=== PATIENT | female | born 1990 | race Caucasian/White ===

== ENCOUNTER 2022-04-28 08:32 | Outpatient (CLI) | payer BC, SELFPAY ==
--- NOTE | 2022-04-28 08:45 | CRLHL7_ITS ---
For Patients: As a result of the Century Cures Act, medical imaging exams and procedure reports are released immediately into your electronic medical record. You may view this report before your referring provider. If you have questions, please contact your health care provider. INDICATION: First trimester scan, establish dates. COMPARISON: None. TECHNIQUE: Real-time benitez-scale imaging of the pelvis was performed. FINDINGS: There is a small ovoid structure within the endometrial canal which may represent a very early gestational sac. Mean sac diameter 2.4 millimeters, 4 weeks 6 days. No intrauterine or ectopic pole. Corpus luteal cyst right ovary. No pelvic free fluid. Normal left ovary. IMPRESSION: Probable tiny intrauterine gestational sac with a mean sac diameter corresponding to a 4 week 6 day gestation. No pole is present. Dictated by Lexa Gunter MD @ 04/28/2022 10:31:22 AM (Electronically Signed)
--- OUTSIDE RECORDS SUMMARY | 2022-04-28 08:47 | XMS_ITS | Clinical Summary ---
:1990 Author Organization [facility] [place] [address] Care Team Providers Name Role Phone Pcp, No Primary Care Provider Unavailable Allergies Active Allergy Reactions Severity Noted Date Comments Penicillins Hives 08/02/2015 Medications Medication Sig Dispensed Refills Start Date End Date Status fexofenadine (ANDER) Take 180 mg by 0 Active 180 mg tablet mouth. levalbuterol (XOPENEX Inhale 2 Puffs by 0 04/11/2020 Active HFA) 45 mcg/actuation mouth. inhaler fish oil-omega-3 fatty Take 2 g by 0 Active acids 300-1,000 mg mouth. omeprazole (PRILOSEC) Take 10 mg by 0 04/11/2020 Active 10 mg capsule mouth. sodium chloride 0.65 % Inhale 1-2 Drops 30 mL 0 08/13/2020 Active dropIndications: Bloody in the nostril(s) nose, Uses continuous at bedtime if positive airway needed. pressure (CPAP) ventilation at home Active Problems Not on file Social History Tobacco Use Types Packs/Day Years Used Date Current Some Day Smoker Smokeless Tobacco: Never Used Alcohol Use Standard Drinks/Week Comments Yes 0 (1 standard drink = 0.6 oz pure alcoho l) Sex Assigned at Date Recorded Not on file Obstetrics History Last Filed Vital Signs Vital Sign Reading Time Taken Comments Blood Pressure 130/94 08/13/2020 1:44 PM RESEARCH NURSE PRACTITIONER Pulse 93 08/13/2020 1:44 PM RESEARCH NURSE PRACTITIONER Temperature 36.5 ??C (97.7 ??F) 08/13/2020 1:44 PM RESEARCH NURSE PRACTITIONER Respiratory Rate 20 08/13/2020 1:44 PM RESEARCH NURSE PRACTITIONER Oxygen Saturation 99% 08/13/2020 1:44 PM RESEARCH NURSE PRACTITIONER Inhaled Oxygen Concentration - - Weight 115.2 kg (253 lb 14.4 oz) 08/13/2020 1:44 PM RESEARCH NURSE PRACTITIONER Height - - Body Mass Index - - Plan of Treatment Health Maintenance Due Date Last Done Comments COVID-19 vaccine series (#1) 05/07/1990 Tdap 2000 Depression screening for age 12+ 2001 BMI (ht and wt on same day) for age 18+ 11/05/2007 Hepatitis C screening for age 18-79 11/05/2007 Tetanus booster 2009 Pap test for age 21-65 2010 Influenza for age 9-49 02/12/2022 Results Not on filefrom Last 3 Months Insurance Payer Benefit Plan / Subscriber ID Effective Dates Phone Addre ss Type Group [employer] [id number] 2020-Presen [address] [place] [address] Care Teams Negative Spotter Relationship Specialty Start Date End Date Pcp, No PCP - General 08/13/20 .
== END 2022-04-28 08:33 | disposition home or self-care (01) ==
LOC: US 08:33
PROVIDERS: Visit Provider Advanced Practice Midwife
DX: Z34.91 Encounter for supervision of normal pregnancy, unspecified, first trimester (principal); Z3A.09 9 weeks gestation of pregnancy
CPT/HCPCS: 76817; 84443; 86592; 86703; 86762; 86787; 86803; 86850; 86900; 86901; 87086; 87340

== ENCOUNTER 2022-05-22 07:18 | Outpatient (CLI) | payer BC, SELFPAY ==
--- NOTE | 2022-05-22 07:15 | CRLHL7_ITS ---
For Patients: As a result of the Cures Act, medical imaging exams and procedure reports are released immediately into your electronic medical record. You may view this report before your referring provider. If you have questions, please contact your health care provider. INDICATION: Prior ultrasound demonstrates only a gestational sac TECHNIQUE: Ultrasound OB pelvis transvaginal. Real time benitez scale imaging of the pelvis was performed. COMPARISON: FINDINGS: Sonographic imaging demonstrates a single living intrauterine gestation. The embryo demonstrates a regular cardiac rate measuring 168 beats per minute. The embryo`s crown rump length measurement of 1.9 cm corresponds to a gestational age of 8 weeks 3 days with a sonographic due date of 12/29/2022. There is a normal appearing yolk sac. There are no gross abnormalities noted within the embryo at this early state of development. The placenta has not yet developed. The gestational sac has a normal appearance and there is no evidence of a perigestational hemorrhage. The amount of fluid within the sac appears appropriate for gestational age. The cervix is closed. The myometrium appears normal. Only right ovaries visualized. There are no suspicious fluid collections noted in the cul-de-sac. IMPRESSION: Viable intrauterine . Gestational age calculated at 8 weeks 3 days with a sonographic due date of 12/29/2022 . No abnormalities seen. Dictated by Lexa Patton MD @ 05/22/2022 8:52:43 AM (Electronically Signed)
--- OUTSIDE RECORDS SUMMARY | 2022-05-22 07:21 | XMS_ITS | Clinical Summary ---
:1990 Author Organization [facility] [place] [address] Care Team Providers Name Role Phone Pcp, [...] Comments Blood Pressure 130/94 08/13/2020 1:44 PM INTERIOR BLOCK WIRER Pulse 93 08/13/2020 1:44 PM INTERIOR BLOCK WIRER Temperature 36.5 ??C (97.7 ??F) 08/13/2020 1:44 PM INTERIOR BLOCK WIRER Respiratory Rate 20 08/13/2020 1:44 PM INTERIOR BLOCK WIRER Oxygen Saturation 99% 08/13/2020 1:44 PM INTERIOR BLOCK WIRER Inhaled Oxygen Concentration - - Weight 115.2 kg (253 lb 14.4 oz) 08/13/2020 1:44 PM INTERIOR BLOCK WIRER Height - - Body Mass Index - - Plan of Treatment Health Maintenance Due Date Last Done Comments COVID-19 vaccine series (#1) 05/07/1990 Tdap 2000 Depression screening for age 12+ 2001 HIV for age 15-65 2004 BMI (ht and wt on same day) for age 18+ 11/05/2007 Hepatitis C screening for age 18-79 11/05/2007 Tetanus booster 2009 Pap test for age 21-65 2010 Influenza for age 9-49 02/12/2022 Results Not on filefrom Last 3 Months Insurance Payer Benefit Plan / Subscriber ID Effective Dates Phone Addre ss Type Group [employer] [id number] 2020-Presen [address] [place] [address] Care Teams Marshmallow Runner Relationship Specialty Start Date End Date Pcp, No PCP - General 08/13/20 .
== END 2022-05-22 07:19 | disposition home or self-care (01) ==
LOC: US 07:19
PROVIDERS: Visit Provider Advanced Practice Midwife
DX: Z34.91 Encounter for supervision of normal pregnancy, unspecified, first trimester (principal)
CPT/HCPCS: 76817

== ENCOUNTER 2022-08-01 18:30 | Emergency (ER) | payer BC, SELFPAY ==
[2022-08-01 18:39] VITALS: BP 144/73; PULSE 86; RESP 18; TEMP 36; O2SAT 99; BMI 40.7
--- NOTE | 2022-08-01 18:46 | CRLHL7_ITS ---
For Patients: As a result of the Century Cures Act, medical imaging exams and procedure reports are released immediately into your electronic medical record. You may view this report before your referring provider. If you have questions, please contact your health care provider. INDICATION: Fall, minor abdominal pain, 8 weeks 6 days . TECHNIQUE: Transabdominal limited OB ultrasound. FINDINGS: Viable IUP with heart rate of 144 beats per minute. Breech presentation. Cervix was not visualized. Placenta is posterior. No specific evidence for abruption. Normal amniotic fluid with the single deepest pocket measuring 4.1 cm. IMPRESSION: Live IUP. No complications identified. Dictated by Vincent Hernández MD @ 08/01/2022 8:08:41 PM (Electronically Signed)
--- NOTE | 2022-08-01 19:41 | ED_ITS ---
HPI - General Adult General Chief complaint: Fall/Minor Trauma Stated complaint: 18w /Fall Time Seen by Provider: 08/01/22 18:34 Source: patient Mode of arrival: ambulatory Limitations: no limitations History of Present Illness HPI narrative: 31-year-old female, approximately 18 weeks coming in today concerned after falling. She slipped on the ice and fell on her left side. She fell on her hip in her left knee. Patient is quite concerned about the well-being of her fetus. She denies any vaginal bleeding or abdominal cramping. States that her knee and hip are little sore but she is walking around without any difficulty. Would Like to have the baby checked today, has no other concerns. Related Data Home Medications Medication Instructions Recorded Confirmed cetirizine 10 mg capsule (Zyrtec) 10 mg PO QDAY PRN 01/14/22 08/01/22 omeprazole 10 mg capsule,delayed 10 mg PO ONCE 01/14/22 08/01/22 release prenat.vits,manish,[id number] 1 tab PO QDAY 01/14/22 08/01/22 Allergies Allergy/AdvReac Type Severity Reaction Status Date / Time Penicillins Allergy Severe Hives Verified 07/17/22 08:56 gluten intolerance AdvReac Mild Gastrointestinal Uncoded 07/17/22 08:56 Upset Review of Systems Status of ROS: Reports: 10 or more systems reviewed and unremarkable except as noted in History and below [facility] Medical History Abnormal Pap smear of cervix Asthma ARLET I (cervical intraepithelial neoplasia I) Fracture of radial neck, left, closed High risk HPV infection Surgical History History of cholecystectomy Family History Father Asthma Depression Maternal Grandfather Cancer Mother Ovarian cancer Cancer of vagina Sister Depression Anxiety Social History (Updated 04/28/22 @ 16:37 by Naty Lange CNM) Narrative: SOCIAL Education: Graduate in October Associate Work: Accounting at [email or web address] 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 Lives with: Lives with partner Pets: 2 cats, 2 dogs Abuse: Denies past/present Special Diet: Avoids gluten Ok with a blood transfusion: yes Culture or mandaen beliefs: denies RISK FACTORS Exercise Times/wk: not routinely; dogs on walks occasionally Depression/Anxiety: hx of both; Seen therapist and on medication in the past for it (Fluoxetine, stopped about 1 year ago); Feels she has ADHD SHAI: 4 PHQ 9: 9 Seat Belt Use: Routinely Smoking: Denies present; Stopped about 5 years ago; does socially smoke in last 3 years; Not currently smoking since started Alcohol/day: Denies while ; Socially prior Caffeine: 2-3 cups of coffee per day Drug Use: Denies past/present Chicken Pox: Yes as a child MRSA: Denies Smoking Status: Former smoker Do you use any of these nicotine containing products: None Second hand tobacco smoke exposure: No How often do you have a drink containing alcohol: never AUDIT-C Alcohol total score: 0 Non-prescribed substance use: denies use Little interest or pleasure in doing things: several days Feeling down, depressed, or hopeless: not at all Exam Narrative: Exam Narrative: Well-nourished well-developed patient in no acute distress. Alert and oriented. Answers questions appropriately. Mood and affect are appropriate. Thoughts are goal oriented and rational. No tangential or magical thinking noted. Patient speaks in full sentences without needing to catch her breath. Voice is not slurred or pressured. HEENT: Normocephalic atraumatic. Pupils are equally round reactive to light. Extraocular muscles are intact. Conjunctivae are moist without any icterus not ed. Moist mucous membranes. Cardiovascular: Heart is regular rate and rhythm Abdomen: Soft and nontender nondistended with normal bowel sounds. No guarding or rebound. Const: Vital Signs, click to edit/add: Vital Signs - 24 hr 08/01/22 18:39 Temperature 96.8 F L Pulse Rate [Pulse Oximeter] 86 Respiratory Rate 18 Blood Pressure [Ri ght Upper Arm] 144/73 H Pulse Oximetry 99 Oxygen Delivery Me thod Room Air Course Course Hospital Course: heart tones were checked at 1:45 a.m.. Limited OB ultrasound was performed-per business office technology instructor, examination was entirely normal with a normal appearing fetus. No evidence of bleeding noted. Final radiological reading pending at this time. Vital Signs Vital signs: Initial Vital Signs Temperature 96.8 F L 08/01/22 18:39 Temperature Source Temporal Artery Scan 08/01/22 18:39 Pulse Rate 86 08/01/22 18:39 Respiratory Rate 18 08/01/22 18:39 Blood Pressure 144/73 H 08/01/22 18:39 Blood Pressure Mean 96 08/01/22 18:39 Blood Pressure Position Sitting 08/01/22 18:39 Pulse Oximetry 99 08/01/22 18:39 Oxygen Delivery Method 08/01/22 18:39 Vital Signs Temperature 96.8 F L 08/01/22 18:39 Pulse Rate 86 08/01/22 18:39 Respiratory Rate 18 08/01/22 18:39 Blood Pressure 144/73 H 08/01/22 18:39 Pulse Oximetry 99 08/01/22 18:39 Oxygen Delivery Method 08/01/22 18:39 Temperature 96.8 F L 08/01/22 18:39 Pulse Rate 86 08/01/22 18:39 Respiratory Rate 18 08/01/22 18:39 Blood Pressure 144/73 H 08/01/22 18:39 Pulse Oximetry 99 08/01/22 18:39 Oxygen Delivery Method 08/01/22 18:39 Medical Decision Making MDM Narrative Medical decision making narrative: 31-year-old female status post a fall, OB ultrasound within normal l imits. Patient reassured. Discharge Plan Discharge Clinical Impression: Fall Patient Disposition: Home, Self-Care Condition: Stable Prescriptions: No Action omeprazole 10 mg capsule,delayed release(DR/EC) 10 mg PO ONCE Zyrtec 10 mg capsule 10 mg PO QDAY PRN prenat.vits,manish,[id number] Tablet 1 tab PO QDAY Follow Up/Referrals: Provider,Not a Local [Primary Care Provider] - Stand Alone Forms: MyHealth Info Instructions
== END 2022-08-01 19:53 | disposition home or self-care (01) ==
PROVIDERS: Emergency Provider Family Medicine
DX: O99.893 Other specified diseases and conditions complicating puerperium (principal); W00.0XXA Fall on same level due to ice and snow, initial encounter
CPT/HCPCS: 76815; 99283; 99284

== ENCOUNTER 2022-08-13 07:09 | Outpatient (CLI) | payer BC, SELFPAY ==
--- NOTE | 2022-08-13 07:15 | CRLHL7_ITS ---
For Patients: As a result of the Century Cures Act, medical imaging exams and procedure reports are released immediately into your electronic medical record. You may view this report before your referring provider. If you have questions, please contact your health care provider. INDICATION: Evaluate anatomy. COMPARISON: August 01, 2022. TECHNIQUE: Real time benitez scale imaging of the fetus was performed. FINDINGS: Sonographic imaging demonstrates a single living intrauterine gestation. Fetus demonstrates a regular cardiac rate of 138 beats per minute. Fetus has a breech orientation and longitudinal lie. The placenta lies posteriorly without evidence of placenta previa. Amniotic fluid volume appears normal. Single deepest vertical pocket: 4.1 cm. The cervix is closed and measures 3.1 cm in length. The composite ultrasound gestational age is calculated at 20 weeks 6 days with an estimated sonographic due date of December 25, 2022. The estimated weight is 402 grams which lies at the 77th percentile. Appropriate growth and maturation compared to the most recent study August 01, 2022. The following biometric measurements were obtained: Biparietal diameter: 4.8 cm/20 weeks 4 days 49% Head circumference: 17.9 cm/20 weeks 2 days 31% Abdominal circumference: 17.0 cm/21 week 6 days 84% Femur length: 3.4 cm/20 weeks 3 days 38% The HC/AC ratio measures: 1.06 range (1.06-1.25) The FL/AC ratio measures 19.79. On anatomic survey, there is a normal appearance of the cerebral ventricles, cisterna magna and cerebellum. The nose, lips, and facial profile appear grossly unremarkable but not optimally visualized particularly laterally. The cervical, thoracic and lumbar spine are well visualized and appear normal. There is a normal four-chamber heart view. The left and right ventricular outflow tracts are not well seen due to presentation. diaphragm, stomach, kidneys and bladder appear normal. There is a normal three-vessel cord and cord insertion site. The four extremities appear normal with the exception of the feet which are not optimally or clearly seen. IMPRESSION: Normal OB ultrasound exam with concordance of clinical and sonographic dating. No intrinsic abnormalities noted on anatomic survey. Please note however, the facial profile, right and left ventricular outflow tracts, and the feet are not well seen and therefore a short interval follow-up ultrasound is recommended for these structures. Dictated by Jewel Fierro MD @ 08/13/2022 8:40:18 AM (Electronically Signed)
== END 2022-08-13 07:10 | disposition home or self-care (01) ==
LOC: US 07:10
PROVIDERS: Visit Provider Advanced Practice Midwife
DX: Z34.82 Encounter for supervision of other normal pregnancy, second trimester (principal); Z3A.20 20 weeks gestation of pregnancy
CPT/HCPCS: 76805

== ENCOUNTER 2022-08-28 07:08 | Outpatient (CLI) | payer BC, SELFPAY ==
--- NOTE | 2022-08-28 07:15 | CRLHL7_ITS ---
For Patients: As a result of the Century Cures Act, medical imaging exams and procedure reports are released immediately into your electronic medical record. You may view this report before your referring provider. If you have questions, please contact your health care provider. INDICATION: Follow-up missing anatomy COMPARISON: 08/13/2022 TECHNIQUE: Real time benitez scale imaging of the fetus was performed. FINDINGS: Sonographic imaging demonstrates a single living intrauterine gestation. Fetus demonstrates a regular cardiac rate of 141 beats per minute. Fetus has a vertex position. The placenta lies posteriorly. Amniotic fluid volume appears normal. Single deepest vertical pocket: 5.0 cm. The nose, lips, and facial profile appear normal. The left and right ventricular outflow tracts appear normal. The feet are also normal. IMPRESSION: Normal facial structures, outflow tracts and feet. Dictated by Lexa Gunter MD @ 08/28/2022 11:28:38 AM (Electronically Signed)
== END 2022-08-28 07:09 | disposition home or self-care (01) ==
PROVIDERS: Visit Provider Advanced Practice Midwife
DX: O35.9XX0 Maternal care for (suspected) fetal abnormality and damage, unspecified, not applicable or unspecified (principal); Z36.89 Encounter for other specified antenatal screening
CPT/HCPCS: 76816

== ENCOUNTER 2022-10-12 08:05 | Outpatient (CLI) | payer BC, SELFPAY | END 2022-10-12 08:06 | disposition home or self-care (01) | LOC: NFLDREF 10-14 08:28 | PROVIDERS: PCP Advanced Practice Midwife; Referring Provider Advanced Practice Midwife; Visit Provider Advanced Practice Midwife | DX: Z34.03 Encounter for supervision of normal first pregnancy, third trimester (principal); Z3A.29 29 weeks gestation of pregnancy | CPT/HCPCS: 86592 ==

== ENCOUNTER 2022-10-16 08:46 | Outpatient (CLI) | payer BC, SELFPAY | END 2022-10-16 08:47 | disposition home or self-care (01) | LOC: NFLDREF 10-19 12:28 | PROVIDERS: PCP Advanced Practice Midwife; Referring Provider Advanced Practice Midwife; Visit Provider Advanced Practice Midwife | DX: Z34.93 Encounter for supervision of normal pregnancy, unspecified, third trimester (principal); Z3A.31 31 weeks gestation of pregnancy | CPT/HCPCS: 82951; 82952 ==

== ENCOUNTER 2022-11-18 09:40 | Outpatient (CLI) | payer BC, SELFPAY | END 2022-11-18 09:41 | disposition home or self-care (01) | LOC: AMB 11-19 01:34 | PROVIDERS: Visit Provider Family Medicine | DX: O14.90 Unspecified pre-eclampsia, unspecified trimester (principal) | CPT/HCPCS: A0425; A0427; A0428 ==

== ENCOUNTER 2023-01-11 08:25 | Outpatient (CLI) | payer BC, SELFPAY | END 2023-01-11 08:26 | disposition home or self-care (01) | LOC: NFLDREF 09:57 | PROVIDERS: Visit Provider Advanced Practice Midwife | DX: O24.419 Gestational diabetes mellitus in pregnancy, unspecified control (principal) | CPT/HCPCS: 82947; 82950 ==

== ENCOUNTER 2023-12-20 07:15 | Outpatient (CLI) | payer OTHER, SELFPAY ==
--- NOTE | 2023-12-20 07:15 | CRLHL7_ITS ---
For Patients: As a result of the Cures Act, medical imaging exams and procedure reports are released immediately into your electronic medical record. You may view this report before your referring provider. If you have questions, please contact your health care provider. HISTORY: Dating and viability COMPARISON: None available of this gestation. TECHNIQUE: Transvaginal ultrasound examination of the early was performed. FINDINGS: A single intrauterine gestational sac is seen with a pole. The crown-rump length measurement of 1.1 cm gives an estimated gestational age of 7 weeks 2 days with an estimated date of delivery of 08/05/2024. When compared with the LMP of 10/18/2023 which gives a clinical age of 9 weeks 0 days, the ultrasound dates are 2 weeks behind the clinical dates. Regular cardiac activity is seen at 135 BPM. There is no sign of free fluid in the pelvis. The ovaries are not identified. IMPRESSION: Single intrauterine gestation with estimated age of 7 weeks 2 days, 2 weeks behind the clinical age of 9 weeks 0 days. Regular cardiac activity is seen. Dictated by Abelino Jenkins MD @ 12/20/2023 8:56:23 AM (Electronically Signed)
--- OUTSIDE RECORDS SUMMARY | 2023-12-20 07:19 | XMS_ITS | Clinical Summary ---
Author Organization [place] Address [address] [place] [address] Care Team Providers Care Loom Inspector Name Role Phone Miri Vidales PA-C Unavailable [phone] Callie Odell DO Primary Care Provider [phone] Allergies Active Allergy Reactions Criticality Noted Date Comments Penicillins Hives High 08/02/2015 Medications Medication Sig Dispensed Refills Start Date End Date Status fluticasone-vilante rol (BREO ELLIPTA) 200-25 MCG/ACT inhaler Inhale 1 puff into the lungs every evening Active Vit-Fe Fumarate-FA ( MULTIVITAMIN W/IRON) 27-0.8 MG tablet Take 1 tablet by mouth every evening Active omeprazole (PRILOSEC) [address] capsule Take 10 mg by mouth every evening Active cetirizine (ZYRTEC) 10 MG tablet Take 10 mg by mouth every evening Active calcium carbonate (TUMS) 500 MG chewable tablet Take 1 chew tab by mouth as needed for heartburn Active acetaminophen (TYLENOL) 325 MG tabletIndications:S /P section Take 2 tablets (650 mg) by mouth every 4 hours as needed for mild pain 60 tablet 11/25/2022 Active ibuprofen (ADVIL/MOTRIN) 600 MG tabletIndications:S /P section Take 1 tablet (600 mg) by mouth every 6 hours as needed for moderate pain 20 tablet 11/25/2022 Active senna-docusate (SENOKOT-S/PERICOLA CE) 8.6-50 MG tabletIndications:S /P section Take 1 tablet by mouth 2 times daily as needed for constipation 60 tablet 11/25/2022 Active hydrochlorothiazide (HYDRODIURIL) 12.5 MG tabletIndications:S /P section Take 1 tablet (12.5 mg) by mouth daily 4 tablet 11/25/2022 Active ferrous sulfate (FEROSUL) 325 (65 Fe) MG tabletIndications:S /P section Take 1 tablet (325 mg) by mouth daily (with breakfast) 60 tablet 11/25/2022 Active NIFEdipine ER OSMOTIC (ADALAT CC) 60 MG 24 hr tabletIndications:E levated blood pressure affecting in third trimester, antepartum Take 2 tablets (120 mg) by mouth every 24 hours 60 tablet 11/25/2022 Active Active Problems Problem Noted Date Diagnosed Date Elevated blood pressure affe cting in third trimester, antepartum 11/18/2022 Hard to intubate 11/18/2022 Social History Tobacco Use Types Packs/Day Years Used Date Smoking Tobacco: Former Cigarettes Smokeless Tobacco: Never Tobacco Cessation:Counseling Given: Not Answered Alcohol Use Standard Drinks/Week Comments Not Currently 0 (1 standard drink = 0.6 oz pur e alcohol) [place] Depression Scale Answer Date Recorded Last EPDS Total Score Not on file 11/22/2022 The thought of harming myself has occurred to me . Never 11/22/2022 Adolescent Education Answer Date Record ed Getting School Help Needed Not on file 03/06 Sex and Gender Information Value Date Recorded Sex Assigned at Not on file Gender Identity Not on file Sexual Orientation Not on file Last Filed Vital Signs Vital Sign Reading Time Taken Comments Blood Pressure 134/84 11/26/2022 9:25 AM CDT Pulse 76 11/26/2022 6:05 AM CDT Temperature 36.7 ??C (98 ??F) 11/26/2022 9:25 AM CDT Respiratory Rate 16 11/26/2022 9:25 AM CDT Oxygen Saturation 95% 11/26/2022 9:25 AM CDT Inhaled Oxygen Concentration - - Weight 125.1 kg (275 lb 12.8 oz) 11/26/2022 7:00 AM CDT Height 175.3 cm (5' 9) 11/19/2022 5:48 AM CDT Body Mass Index 40.73 11/19/2022 5:48 AM CDT Plan of Treatment Health Maintenance Due Date Last Done Comments ADVANCE CARE PLANNING 1989 ANNUAL REVIEW OF HM ORDERS 1989 YEARLY PREVENTIVE VISIT 1989 HEPATITIS B IMMUNIZATION (1 of 3 - 19+ 3-dose series) 2008 PAP 2010 DTAP/TDAP/TD IMMUNIZATION (2 - Td or Tdap) 09/14/2021 09/15/2011 COVID-19 Vaccine (1 - 2022-2 4 season) 2023 PHQ-2 (once per calendar year) 2023 INFLUENZA VACCINE (Season Ended) 2024 MENINGITIS IMMUNIZATION Completed 01/10/2008 HEPATITIS C SCREENING Completed 04/28/2022 HIV SCREENING Completed 04/28/2022 HPV IMMUNIZATION Aged Out No longer e ligible based on patient's age to complete this topic IPV IMMUNIZATION Aged Out No longer e ligible based on patient's age to complete this topic Pneumococcal Vaccine: Pediat rics (0 to 5 Years) and At-Risk Patients (6 to 64 Years) Aged Out No longer eligi ble based on patient's age to complete this topic RSV MONOCLONAL ANTIBODY Aged Out No l onger eligible based on patient's age to complete this topic Procedures Procedure Name Priority Date/Time Associated Diagnosis Comments ABSTRACT HIV Routine 04/28/2022 10:53 AM HOTEL DIRECTOR HEPATITIS C ([facility] EXTERNAL RESULT) Routine 04/28/2022 10:53 AM HOTEL DIRECTOR from Last 3 Months or Most Recently Relevant to Health Maintenance Results * ABSTRACT HIV (04/28/2022 10:53 AM HOTEL DIRECTOR) HIV 1&2 EXT Non-Reacti ve [facility] Comment:Negative Blood 04/28/2022 10:5 3 AM HOTEL DIRECTOR Narrative [facility] - 04/28/2022 10:53 AM HOTEL DIRECTOR [facility] RESULT Provider Outside LAB - HIM EXTERNAL R ESULT [facility] [address] [place] [address], [facility] [phone] * Hepatitis C ([facility] External Result) (04/28/2022 10:53 AM HOTEL DIRECTOR) Hep C HIM See Scanned Document [facility] 04/28/2022 10:5 3 AM HOTEL DIRECTOR Narrative [facility] - 04/28/2022 10:53 AM HOTEL DIRECTOR [facility] RESULT Provider Outside LAB - HIM EXTERNAL R ESULT [facility] [address] [place] [address], [facility] [phone] from Last 3 Months or Most Recently Relevant to Health Maintenance Advance Directives For more information, please contact: [phone] * Full Code (Latest Code Status on File) Date Activated Date Inactivated Comments 11/21/2022 3:43 PM 11/26/2022 5:23 PM All basic an d advanced life-sustaining interventions are performed as appropriate Question Answer Comments Code status determined by: Discussion with patie nt/ legal decision maker * Full Code Date Activated Date Inactivated Comments 11/18/2022 11:40 PM 11/21/2022 3:43 PM All basic an d advanced life-sustaining interventions are performed as appropriate Question Answer Comments Code status determined by: Discussion with patie nt/ legal decision maker * Full Code Date Activated Date Inactivated Comments 11/18/2022 12:25 PM 11/18/2022 11:40 PM All basic an d advanced life-sustaining interventions are performed as appropriate Question Answer Comments Code status determined by: Discussion with patie nt/ legal decision maker Care Teams Loom Inspector Relationship Specialty Start Date End Date Callie [place] [address] PCP - General Family Practice 11/18/22 Miri Vidales PA-C [address] [place] [address] [address] [place] [address] Physician Labels Molder Endocrinology, Diabetes, and Metabolism 11/11/22
--- OUTSIDE RECORDS SUMMARY | 2023-12-20 07:19 | XMS_ITS | Referral Summary ---
Author Organization [place] Address [address] [place] [address] Care Team Providers Care Orderly Name Role Phone Miri Vidales PA-C Unavailable Callie Odell DO Primary Care Provider [phone] Allergies Active Allergy Reactions Criticality Noted Date [...] drink = 0.6 oz pur e alcohol) Chloe Depression Scale Answer Date Recorded Last EPDS [...] 11/19/2022 5:48 AM CDT Plan of Treatment Not on file Procedures Procedure Name Priority Date/Time Associated Diagnosis Comments ABSTRACT HIV Routine 04/28/2022 10:53 AM FOUNDATION DIRECTOR HEPATITIS C ([facility] EXTERNAL RESULT) Routine 04/28/2022 10:53 AM FOUNDATION DIRECTOR from Last 3 Months or Most Recently Relevant to Health Maintenance Results * ABSTRACT HIV (04/28/2022 10:53 AM FOUNDATION DIRECTOR) HIV 1&2 EXT Non-Reacti ve [facility] Comment:Negative Blood 04/28/2022 10:5 3 AM [facility] - 04/28/2022 10:53 AM [facility] LAB RESULT Provider Outside LAB - HIM EXTERNAL R ESULT Performing Organization Address City/[facility]/ZIP Co de Phone Number [facility] [address] [place] [address], [facility] [phone] * Hepatitis C ([facility]IM External Result) (04/28/2022 10:53 AM FOUNDATION DIRECTOR) Hep C HIM See Scanned Document [facility] 04/28/2022 10:5 3 AM [facility] - 04/28/2022 10:53 AM [facility] LAB RESULT Provider Outside LAB - HIM EXTERNAL R ESULT Performing Organization Address City/[facility]/ZIP Co de Phone Number [facility] [address] [place] [address], [facility] [phone] from Last 3 Months or Most Recently Relevant to Health Maintenance Advance Directives For more information, please contact: [phone] * Full Code (Latest Code Status on [...] patie nt/ legal decision maker Care Teams Orderly Relationship Specialty Start Date End Date Callie Odell DO [address] [place] [address] PCP - General Family Practice 11/18/22 Miri Vidales PA-C [address] [place] [address] [address] [place] [address] Physician Tinning Equipment Tender Endocrinology, Diabetes, and Metabolism 11/11/22
--- OUTSIDE RECORDS SUMMARY | 2023-12-20 07:20 | XMS_ITS | Encounter Summary ---
Author Organization [place] Address [address] [place] [address]. [place] [address] Care Team Providers Care Medical Imaging Technologist Name Role Phone [facility] Primary Care Provider Miri Vidales PA-C Unavailable [phone] Callie Odell DO Primary Care Provider Encounter Details Date Type Department Care Team (Late st Contact Info) Description 11/17/2022 [facility] [address] [place] [address] Iona Munoz, RN Social History Tobacco Use Types Packs/Day Years Used Date Smoking Tobacco: Never Assessed Comments Yes Sex and Gender Information Value Date Recorded Sex Assigned at Not on file Gender Identity Not on file Sexual Orientation Not on file COVID-19 Exposure Response Date Recorded In the last 10 days, have yo u been in contact with someone who was confirmed or suspected to have Coronavirus/COVID-19? No / Unsure 11/18/2022 10:48 AM CDT documented as of this encounter Plan of Treatment Not on file documented as of this encounter Visit Diagnoses Not on filedocumented in this encounter Care Teams Medical Imaging Technologist Relationship Specialty Start Date End Date [facility] [address] [place] [address] PCP - General 11/11/22 11/17/22 Callie Odell DO [address] [place] [address] PCP - General Family Practice 11/18/22 Miri Vidales PA-C [address] [place] [phone] Physician Voltage Regulator Assembler Endocrinology, Diabetes, and Metabolism 11/11/22 documented as of this encounter
--- OUTSIDE RECORDS SUMMARY | 2023-12-20 07:20 | XMS_ITS | Encounter Summary ---
Author Organization [place] Address [address] [place] [address]. [place] [address] Care Team Providers Care Front End Assistant Name Role Phone Sangeetha Ashby Perkins Primary Care Provider Miri Vidales PA-C Unavailable Callie Odell DO Primary Care Provider [phone] Reason for Visit * Reason Onset Date Comments Call Back 11/17/2022 Encounter Details Date Type Department Care Team (Late st Contact Info) Description 11/17/2022 [facility] End[facility]ology [facility] [place] [address] [facility] [address] [place] [address] Bridget Dixon MD [address] [facility] [address] [place] [address] Call Back Social History Tobacco Use Types Packs/Day Years [...] AM CDT documented as of this encounter Miscellaneous Notes * Telephone Encounter - Joyce Donaldson - 11/17/2022 3:42 PM CDT [facility] Call Center Phone Message May a detailed message be left on voicemail: yes Reason for Call: Other: referring provider wants to make sure the appts scheduled appropriately to the patient's needs, they have conerns over a virtual visit, please call [facility] and ask for triage at [phone] Action Taken: Other: endo Travel Screening: Not Applicable documented in this encounter Plan of Treatment Not on file documented as of this encounter Visit Diagnoses Not on filedocumented in this encounter Care Teams Front End Assistant Relationship Specialty Start Date End Date [facility] [address] [place] [address] PCP - General 11/11/22 11/17/22 Callie Odell DO [address] [place] [address] PCP - General Family Practice 11/18/22 Miri Vidales PA-C [address] [place] [address] [address] [place] [address] Physician Grave Cleaner Endocrinology, Diabetes, and Metabolism 11/11/22 documented as of this encounter
--- OUTSIDE RECORDS SUMMARY | 2023-12-20 07:20 | XMS_ITS | Clinical Summary ---
Author Organization [facility] Address [place], [place] [address] Care Team Providers Care Aquatics Group Fitness Instructor Name Role Phone Callie Odell DO Primary Care Provider Allergies Active Allergy Reactions Criticality Noted Date Comments Penicillins Hives 08/02/2015 Medications Medication Sig Dispensed Refills Start Date End Date Status levalbuterol (XOPENEX HFA) 45 mcg/actuation inhaler Inhale 2 Puffs by mouth. 04/11/2020 Active cetirizine (ZYRTEC) 10 mg tablet Take 1 Tablet (10 mg) by mouth once daily. 0 2022 Active fluticasone furoate-vilanteroL (Breo Ellipta) 200mcg/25mcg inhalerIndications:Mil d persistent asthma without complication Inhale 1 Puff by mouth once daily. 60 Each 2022 Active CPAPIndications:Obstru ctive sleep apnea CPAP machine for home use at pressure 5-15 cmw, nasal mask x1/3month with nasal pillows x 2/mo 1 Each 11 01/07/2023 Active Active Problems Problem Noted Date Diagnosed Date PCOS (polycystic ovarian syndrome) 04/21/2023 Chronic GERD 2022 Obstructive sleep apnea 2022 Mild persistent asthma without complication 10/13 Diet controlled gestational diabetes mellitus (GDM) in third trimester 2022 Encounters Date Type Department Care Team Description 10/20/2023 1:45 PM CDT Office Visit [facility] [address] [place], [place] [id number] Wili Mathew DO Ear Problem (Left ear pain x week /Sinus pressure and teeth pain ) 10/20/2023 Travel 10/16/2023 9:15 AM CDT Office Visit [facility] [address] [place] [address] Placido Tyler MD Ear Problem (Left sided ear pain w/o drainage onset yesterday following single episode of popping sensation to ear s/p blowing nose. ); Sinus Infection (Possible sinus infection; left sided facial/sinus pressure x 2 days. ) 10/16/2023 Travel from Last 3 Months Immunizations Name Administration Dates Next Due Meningococcal Vaccine (Menactra) 01/10/2008 Tdap 09/15/2011 Family History Medical History Relation Name Comments Good Health Brother 1 Good Health Brother 2 Asthma Father Hypertension Father Other Father Cough-related s yncope Unknown Maternal Grandfather Diabetes Maternal Grandmother Cancer Mother Unsure what typ e; led to hysterectomy Gestational diabetes Mother Unknown Paternal Grandfather Good Health Paternal Grandmother Good Health Sister 1 Good Health Sister 2 Relation Name Status Comments Brother 1 Alive Brother 2 Alive Father Maternal Grandfather Maternal Grandmother Mother Paternal Grandfather Paternal Grandmother Sister 1 Alive Sister 2 Alive Social History Tobacco Use Types Packs/Day Years Used Date Smoking Tobacco: Former Cigarettes Smokeless Tobacco: Never Tobacco Cessation:Counseling Given: Yes Alcohol Use Standard Drinks/Week Comments Yes 0 (1 standard drink = 0.6 oz pur e alcohol) socially PHQ-2 Answer Date Recorded PHQ-2 TOTAL SCORE 0 2022 Social Connections Answer Date Recorded Frequency of Communication with Friends and Fami ly 0 10/16/2023 Financial Resource Strain Answer Date R ecorded Difficulty of Paying Living Expenses 3 10/16/2023 Difficulty of Paying Living Expenses Not on file 10/16/2023 Food Insecurity Answer Date Recorded Worried About Running Out of Food in the Last Ye ar 1 10/16/2023 Transportation Needs Answer Date Record ed Lack of Transportation (Medical) 1 10/16/2023 Housing Stability Answer Date Recorded Unable to Pay for Housing in the Last Year 1 10/16/2023 Sex and Gender Information Value Date Recorded Sex Assigned at Not on file Gender Identity Not on file Sexual Orientation Not on file Obstetrics History Para Term AB IAB SAB Ectopic Multiple Livin g Live Births 1 Date Outcome GA Total Labor Labor/2nd/3rd Weight Sex Type Anes PTL Karli A1 A5 Name Clin Last Filed Vital Signs Vital Sign Reading Time Taken Comments Blood Pressure 142/84 10/20/2023 1:44 PM CDT Pulse 74 10/20/2023 1:44 PM CDT Temperature 36.2 ??C (97.1 ??F) 10/16/2023 9:18 AM CD T Respiratory Rate 18 10/16/2023 9:18 AM CDT Oxygen Saturation 98% 10/20/2023 1:44 PM CDT Inhaled Oxygen Concentration - - Weight 121.1 kg (267 lb) 10/20/2023 1:44 PM CDT Height - - Body Mass Index - - Plan of Treatment Health Maintenance Due Date Last Done Comments Pneumococcal series for age 6-64 (1 of 2 - PCV) 11/05/1995 HIV for age 15-65 2004 BMI (ht and wt on same day) for age 18+ 11/05/2007 Hepatitis C screening for age 18-79 11/05/2007 Tetanus booster 09/14/2021 09/15/2011 COVID-19 vaccine series ( season) 2023 Depression screening for age 12+ 11/05/2023 11/05/19 23 Influenza for age 9-49 02/13/2024 Pap test for age 21-65 01/05/2026 01/05/2023, 2022 Tdap Completed 09/15/2011 Procedures Procedure Name Priority Date/Time Associated Diagnosis Comments HPV THIN PREP Routine 01/05/2023 10:00 AM CDT from Last 3 Months or Most Recently Relevant to Health Maintenance Results * HPV HIGH RISK (01/05/2023 10:00 AM CDT) TYPE 16 Negative Negative 01/08/2023 3:59 PM CDT [facility] TYPE 18 Negative Negative 01/08/2023 3:59 PM CDT [facility] OTHER HIGH RISK TYPES Negative Negative 01/08/2023 3:59 PM CDT [facility] Other (Cervical) 01/05/2023 10:00 AM CDT 01/07/2023 2:19 PM CDT Narrative [facility] - 01/08/2023 3:59 PM CDT HPV types 16, 18, 31, 33, 35, 39, 45, 51, 52, 56, 58, 59, 66 and 68 DNA were undetectable or below the pre-set threshold. Methodology: Pratima Deidra 4800 HPV Test Naty Lange CNM MICROBIOLOGY [facility] [address] [place] [address], from Last 3 Months or Most Recently Relevant to Health Maintenance Care Teams Aquatics Group Fitness Instructor Relationship Specialty Start Date End Date Callie Odell DO [address] [place] [address] PCP - General Family Practice 07/28/23
--- OUTSIDE RECORDS SUMMARY | 2023-12-20 07:20 | XMS_ITS ---
Author Organization [facility] Address [address] [place] [address] Care Team Providers Care Post Acute Care Nurse Practitioner Name Role Phone Miri Vidales PA-C Unavailable Callie Odell DO Primary Care Provider [phone] Diabetes Self-Management Education Status:Identified (Enrolling) Start date:11/16/2022 Continued Care and Services Coordination
--- OUTSIDE RECORDS SUMMARY | 2023-12-20 07:20 | XMS_ITS | Encounter Summary ---
Author Organization [facility] Address [address] [place] [address]. [place] [address] Care Team Providers Care Refrigeration Systems Installer Name Role Phone Sangeetha Ashby [place] Primary Care Provider Miri Vidales PA-C Unavailable Callie Odell DO Primary Care Provider Reason for Visit * Reason Onset Date Comments Appointment 11/11/2022 Encounter Details Date Type Department Care Team (Late st Contact Info) Description 11/11/2022 Telephone [facility]ology [facility] [place] [address] [facility] [address] [place] [address] Miri Vidales PA-C [address] [facility] [address] [place] [address] Appointment Social History Tobacco Use Types Packs/Day Years [...] suspected to have Coronavirus/COVID-19? No / Unsure 11/13/2022 1:24 PM CDT documented as of this encounter Miscellaneous Notes * Telephone Encounter - Anuj Ellie - 11/13/2022 3:23 PM CDT Patient called wanting a update due to urgency regarding her diagnosis. * Telephone Encounter - Iona Munoz RN - 11/11/2022 9:54 PM CDT Gestational diabetes please schedule NEW within one week per clinic protocol Iona Munoz RN on 11/11/2022 at 9:55 PM * Telephone Encounter - Joyce Donaldson - 11/11/2022 12:45 PM CDT [facility] Phone Message May a detailed message be left on voicemail: yes Reason for Call: Appointment Intake Referring Provider Name: NaisaYudyKristina Diagnosis and/or Symptoms: Gestational diabetes mellitus in , unspecified control [O24.419] Morbid (severe) obesity due to excess calories (H) [E66.01] Action Taken: Other: endo Travel Screening: Not Applicable documented in this encounter Plan of Treatment Not on file documented as of this encounter Visit Diagnoses Not on filedocumented in this encounter Care Teams Refrigeration Systems Installer Relationship Specialty Start Date End Date [address] [address] PCP - General 11/11/22 11/17/22 Callie Odell DO [address] [place] [address] PCP - General Family Practice 11/18/22 Miri Vidales PA-C [address] [place] [address] [address] [place] [address] Physician Smokehouse Operator Endocrinology, Diabetes, and Metabolism 11/11/22 documented as of this encounter
== END 2023-12-20 07:16 | disposition home or self-care (01) ==
PROVIDERS: PCP Family Medicine; Visit Provider Advanced Practice Midwife
DX: Z34.91 Encounter for supervision of normal pregnancy, unspecified, first trimester (principal); Z3A.01 Less than 8 weeks gestation of pregnancy
CPT/HCPCS: 76817; 82565; 82570; 84156; 84450; 84460; 84520; 86592; 86703; 86704; 86706; 86762; 86787; 86803; 86850; 87086; 87340